=== PATIENT | female | born 1995 | race Hispanic/Latino ===

== ENCOUNTER 2020-10-09 10:07 | Inpatient (IN) | payer OTHER ==
[2020-10-09] MEDS ORDERED: Ondansetron PF 4 MG/2 ML Vial IVP PRN ×3 (10:46→17:32)
[2020-10-09] MEDS ORDERED: Bicitra 30 ML UDCUP PO PRN (10:46)
[2020-10-09] MEDS ORDERED: Promethazine HCl 25 MG/ML VIAL IM PRN ×2 (10:46→14:28)
[2020-10-09] MEDS ORDERED: Lactated Ringer's 1,000 ML IV SCH (10:46)
[2020-10-09] MEDS ORDERED: Acetaminophen 500 MG TAB PO PRN (10:46)
[2020-10-09] MEDS ORDERED: CEFAZOLIN 2 GM in Premix Bag 1 BAG IVPB SCH (10:46)
[2020-10-09] MEDS ORDERED: Famotidine/PF 20 mg/2ml Vial SLOW IVP PRN (10:46)
[2020-10-09] MEDS ORDERED: hydrALAZINE 20 MG/ML VIAL SLOW IVP PRN ×2 (10:46→17:32)
[2020-10-09 10:47] VITALS: BMI 32.5
[2020-10-09 11:12] LABS: Hemoglobin 9.1 g/dL (12.0-15.5); Mean Corpuscular HGB CONC 30.7 g/dL (32.0-36.0); Mean Corpuscular Hemoglobin 23.5 pg (27.0-33.0); Mean Corpuscular Volume 76.3 fl (81.6-98.3); Mean Platelet Volume 11.5 fl (7.4-10.4); Platelet Count 240 10x3/uL (150-450); RBC Distribution Width 15.9 % (11.5-14.5); Red Blood Cell (RBC) Count 3.88 10x6/uL (3.90-5.03); White Blood Cell (WBC) Count 9.8 10x3/uL (3.5-10.5)
[2020-10-09] MEDS ORDERED: Bicitra 30 ML UDCUP ONE (11:34)
[2020-10-09 11:50] LABS: Hep B Surf Ag Non-Reactive S/CO (NonReactive); Syphilis Antibody Nonreactive (Nonreactive); Syphilis Antibody Index 0.04 S/CO (<1.00 Non-Reactive)
[2020-10-09 11:53] LABS: HBSAg Index 0.12 S/CO (0-0.99)
[2020-10-09] MEDS ORDERED: Morphine PF 10 MG/10 ML VIAL ONE (12:00)
[2020-10-09] MEDS ORDERED: Ondansetron PF 4 MG/2 ML Vial ONE (12:00)
[2020-10-09] MEDS ORDERED: Dexamethasone 4 mg/ml Vial ONE (12:00)
[2020-10-09] MEDS ORDERED: Ketorolac Tromethamine 30 MG/ML VIAL ONE (12:00)
[2020-10-09] MEDS ORDERED: HYDROmorphone 2 MG/ML VIAL SLOW IVP PRN (14:28)
[2020-10-09] MEDS ORDERED: Ondansetron HCl/PF 4 MG/2 ML Vial IVP PRN (14:28)
[2020-10-09] MEDS ORDERED: diphenhydrAMINE 50 MG/ML VIAL IVP PRN (14:28)
[2020-10-09] MEDS ORDERED: Naloxone HCl 0.4 mg/ml Vial IV PRN (14:28)
[2020-10-09] MEDS ORDERED: Ketorolac Tromethamine 30 MG/ML VIAL IVP PRN (14:28)
[2020-10-09] MEDS ORDERED: Promethazine HCl 25 MG SUPP PR PRN (14:28)
[2020-10-09] MEDS ORDERED: Naloxone HCl 0.4 mg/ml Vial IVP PRN ×2 (14:28)
[2020-10-09] MEDS ORDERED: Meperidine HCl/PF 25 MG/ML VIAL SLOW IVP PRN (14:28)
[2020-10-09] MEDS ORDERED: Eucerin (Mineral Oil/Petrolatum,White) 30 gm Jar TOP PRN (14:28)
[2020-10-09] MEDS ORDERED: L&D-Morphine 4 MG/ML VIAL SLOW IVP PRN (14:28)
[2020-10-09] MEDS ORDERED: Ketorolac Tromethamine 30 MG/ML VIAL IVP SCH (14:30)
[2020-10-09] MEDS ORDERED: Communication Order-Pharmacy FS SCH (14:30)
[2020-10-09] MEDS ORDERED: NS w/ Oxytocin 30 units 500 ML ONE (14:56)
[2020-10-09] MEDS ORDERED: Adacel (T-DAP) 0.5 ML SYRINGE IM ONE (17:32)
[2020-10-09] MEDS ORDERED: Lanolin Ointment 7 GM TUBE TOP PRN (17:32)
[2020-10-09] MEDS ORDERED: diphenhydrAMINE 25 MG CAP PO PRN (17:32)
[2020-10-09] MEDS: Ferrous Sulfate 325 MG TAB PO SCH (22:07)
[2020-10-10] MEDS ORDERED: HYDROcodone/Acetaminophen 5/325 mg Tablet PO PRN (02:30)
[2020-10-10 06:25] LABS: Hemoglobin 8.7 g/dL (12.0-15.5); Mean Corpuscular HGB CONC 31.3 g/dL (32.0-36.0); Mean Corpuscular Hemoglobin 24.2 pg (27.0-33.0); Mean Corpuscular Volume 77.4 fl (81.6-98.3); Mean Platelet Volume 11.5 fl (7.4-10.4); Platelet Count 215 10x3/uL (150-450); RBC Distribution Width 15.4 % (11.5-14.5); Red Blood Cell (RBC) Count 3.59 10x6/uL (3.90-5.03); White Blood Cell (WBC) Count 12.8 10x3/uL (3.5-10.5)
[2020-10-10] MEDS: Prenatal Vitamin 1 TAB PO SCH (08:38)
[2020-10-10] MEDS: Ferrous Sulfate 325 MG TAB PO SCH ×2 (08:38→20:37)
[2020-10-10] MEDS: HYDROcodone/Acetaminophen 5/325 mg Tablet PO PRN ×3 (08:42→20:37)
[2020-10-10] MEDS: Ibuprofen 800 MG TAB PO SCH ×2 (13:52→22:43)
[2020-10-10 16:37] LABS: pH (Cord, venous) 6.947 (7.250-7.350)
[2020-10-11] MEDS: Ibuprofen 800 MG TAB PO SCH ×3 (05:13→21:56)
[2020-10-11] MEDS: Prenatal Vitamin 1 TAB PO SCH (08:12)
[2020-10-11] MEDS: Ferrous Sulfate 325 MG TAB PO SCH ×2 (08:12→21:56)
[2020-10-11] MEDS: HYDROcodone/Acetaminophen 5/325 mg Tablet PO PRN ×3 (08:15→20:32)
[2020-10-12] MEDS: Ibuprofen 800 MG TAB PO SCH ×2 (05:15→13:43)
[2020-10-12 07:59] VITALS: BP 106/66; TEMP 98
[2020-10-12] MEDS: Prenatal Vitamin 1 TAB PO SCH (08:35)
[2020-10-12] MEDS: Ferrous Sulfate 325 MG TAB PO SCH (08:35)
[2020-10-12] MEDS: HYDROcodone/Acetaminophen 5/325 mg Tablet PO PRN (12:50)
== END 2020-10-12 18:20 | disposition home or self-care (01) | DRG 788 ==
LOC: CSHLD 10:07 → EEVIPCON 10:07 → EDSTATUS 12:00 → CSHPP 16:10
PROVIDERS: ADMIT Family Medicine; ATTEND Family Medicine
PROC: 10D00Z1 Extraction of Products of Conception, Low, Open Approach (ICD-10-PCS; principal; 2020-10-09)
DX: O34.211 Maternal care for low transverse scar from previous cesarean delivery (principal); Z3A.39 39 weeks gestation of pregnancy; Z37.0 Single live birth; O99.52 Diseases of the respiratory system complicating childbirth; J45.909 Unspecified asthma, uncomplicated; O32.1XX0 Maternal care for breech presentation, not applicable or unspecified; O99.62 Diseases of the digestive system complicating childbirth; K66.0 Peritoneal adhesions (postprocedural) (postinfection)
CPT/HCPCS: 36415; 51702; 82805; 85027; 86780; 86850; 86900; 86901; 87340; J0690; J1100; J1885; J2274; J2405; J2590